=== PATIENT | female | born 1970 | race American Indian/Alaskan Native ===

== ENCOUNTER 2022-04-23 15:17 | Emergency (ER) | payer BC ==
--- NOTE | 2022-04-23 15:28 | Event Note ---
ED Screening Note ED Screening Note: 51 yo AA female with substernal cp never had this before feels heavy no sob pmh dm no acs hx This initial assessment/diagnostic orders/clinical plan/treatment(s) is/are subject to change based on patients health status, clinical progression and re- assessment by fellow clinical providers in the ED. Further treatment and workup at subsequent clinical providers discretion. Patient/guardian urged not to elope from the ED as their condition may be serious if not clinically assessed and managed. Initial orders include: ro acs
--- NOTE | 2022-04-23 15:53 | XRay Report ---
XR chest routine 2V INDICATION / CLINICAL INFORMATION: Chest Pain COMPARISON: None available. FINDINGS: SUPPORT DEVICES: None. HEART / MEDIASTINUM: No significant abnormality. LUNGS / PLEURA: Lungs are clear. Costophrenic sulci are sharp. No pneumothorax. ADDITIONAL FINDINGS: No significant additional findings. IMPRESSION: 1. No significant abnormality. Signer Name: Venkat Guzman MD Signed: 04/23/2022 3:48 PM Workstation Name: [id number]
[2022-04-23 18:16] LABS: Alanine Aminotransferase 41 units/L (7-56); BUN/Creatinine Ratio 18; Blood Urea Nitrogen 14 mg/dL (7-17); Calcium 9.9 mg/dL (8.4-10.2); Hemolysis Index 31
[2022-04-23 18:57] LABS: Eosinophils % (Auto) 0.2 % (0.0-4.3); Hematocrit 40.3 % (30.3-42.9); Hemoglobin 13.6 gm/dl (10.1-14.3); Lymphocytes % (Auto) 42.6 % (13.4-35.0); Mean Corpuscular HGB Conc 34 % (30-34); Mean Corpuscular Volume 90 fl (79-97); Monocytes # (Auto) 0.4 K/mm3 (0.0-0.8); Monocytes % (Auto) 8.5 % (0.0-7.3); Platelet Count 234 K/mm3 (140-440); Red Cell Distribution Width 12.1 % (13.2-15.2)
[2022-04-23 19:16] LABS: Albumin TNR g/dL (3.9-5)
--- NOTE | 2022-04-24 10:25 | Emergency Department Report ---
ED Chest Pain HPI - General Chief Complaint: Chest Pain Stated Complaint: CHEST PAIN Time Seen by Provider: 04/24/22 08:43 Source: patient Mode of arrival: Ambulatory Limitations: No Limitations - History of Present Illness Initial Comments: 51-year-old female with a past medical history of [id number] diabetes and recent diagnosis of mixed connective tissue disorder presents to the hospital complain of anterior right-sided chest pain that started prior to ED presentation yesterday. Pain described as 7/10 intensity, aching, worse with movement and palpation. Patient denies shortness of breath, nausea, vomiting, diaphoresis, calf tenderness, leg edema, or history of PE/DVT. She was recently diagnosed with mixed connective tissue disorder by her barytes grinder and recently started on a medication beginning with a "P". - Related Data Previous Rx's Medication Instructions Recorded Last Taken Type Sulfamethoxazole/Trimethoprim 1 each PO BID #10 tablet 04/16/20 Unknown Rx [Bactrim DS TAB] metFORMIN [Glucophage] 500 mg PO BID #60 tablet 04/16/20 Unknown Rx Allergies Allergy/AdvReac Type Severity Reaction Status Date / Time No Known Allergies Allergy Verified 04/16/20 12:26 Heart Score - HEART Score History: Slightly suspicious EKG: Non-specific Age: 45-65 Risk factors: 1-2 risk factors Troponin: < normal limit HEART Score: 3 - EKG Read Time Time EKG Completed: 08:21 EKG Read Time: 08:30 ED Review of Systems ROS: Stated complaint: CHEST PAIN Other details as noted in HPI Comment: All other systems reviewed and negative ED Past Medical Hx - Past Medical History Previous Medical History?: Yes Hx Diabetes: Yes Additional medical history: Mixed connective tissue disorder - Surgical History Additional Surgical History: HYSTERECTOMY - Social History Smoking Status: Never Smoker - Medications Home Medications: Home Medications Medication Instructions Recorded Confirmed Last Taken Type Sulfamethoxazole/Trimethoprim 1 each PO BID #10 tablet 04/16/20 Unknown Rx [Bactrim DS TAB] metFORMIN [Glucophage] 500 mg PO BID #60 tablet 04/16/20 Unknown Rx ED Physical Exam - General Limitations: No Limitations - Other Other exam information: General: No acute distress Head: Atraumatic Eyes: normal appearance ENT: Moist mucous membranes Neck: Normal appearance, no midline tenderness Chest: Clear to auscultation bilaterally, reproducible right-sided anterior chest wall tender CV: Regular rate and rhythm Abdomen: Soft, normal bowel sounds, nontender, nondistended, no rebound or guarding Back: Normal inspection Extremity: Normal inspection, full range of motion, no calf tenderness or leg edema, reproducible tenderness to right bicep area Neuro: Alert O x 3, no facial asymmetry, speech clear, no gross motor sensory deficit Psych: Appropriate behavior Skin: No rash ED Course Vital Signs 04/23/22 04/24/22 15:24 11:21 Temperature 98.4 F 97.7 F Pulse Rate 104 H 100 H Respiratory 18 18 Rate Blood Pressure 175/103 Blood Pressure 146/90 [Left] O2 Sat by Pulse 100 98 Oximetry ANTONINA score - Antonina Score Age > 65: (0) No 3 or more CAD Risk Factors: (0) No 2 or more Angina events in past 24 hrs: (0) No Known CAD with more than 50% Stenosis: (0) No Elevated Cardiac Markers: (0) No ST Deviation Greater than 0.5mm: (0) No ED Medical Decision Making - Lab Data Result diagrams: 04/23/22 16:55 04/23/22 16:55 Lab Results 04/23/22 04/23/22 04/23/22 Range/Units 16:55 16:55 22:37 WBC 4.6 (4.5-11.0) K/mm3 RBC 4.50 (3.65-5.03) M/mm3 Hgb 13.6 (10.1-14.3) gm/dl Hct 40.3 (30.3-42.9) % MCV 90 (79-97) fl MCH 30 (28-32) pg MCHC 34 (30-34) % RDW 12.1 L (13.2-15.2) % Plt Count 234 (140-440) K/mm3 Lymph % (Auto) 42.6 H (13.4-35.0) % [place] % (Auto) 8.5 H (0.0-7.3) % Eos % (Auto) 0.2 (0.0-4.3) % Baso % (Auto) Area Development Consultant Lymph # (Auto) 2.0 (1.2-5.4) K/mm3 [place] # (Auto) 0.4 (0.0-0.8) K/mm3 Eos # (Auto) 0.0 (0.0-0.4) K/mm3 Baso # (Auto) 0.0 (0.0-0.1) K/mm3 Seg Neutrophils % 48.2 (40.0-70.0) % Seg Neutrophils # 2.2 (1.8-7.7) K/mm3 Sodium 136 L (137-145) mmol/L Potassium 4.1 (3.6-5.0) mmol/L Chloride 98.4 (98-107) mmol/L Carbon Dioxide 24 (22-30) mmol/L Anion Gap 18 mmol/L BUN 14 (7-17) mg/dL Creatinine 0.8 (0.6-1.2) mg/dL Estimated GFR > 60 ml/min BUN/Creatinine Ratio 18 % Glucose 250 H (65-100) mg/dL Calcium 9.9 (8.4-10.2) mg/dL Total Bilirubin 0.20 (0.1-1.2) mg/dL AST 30 (5-40) units/L ALT 41 (7-56) units/L Alkaline Phosphatase 119 (35-129) units/L Troponin T < 0.010 < 0.010 (0.00-0.029) ng/mL Total Protein 8.3 H (6.3-8.2) g/dL Albumin TNR Albumin/Globulin Ratio TNR Lipase 21 (13-60) units/L - EKG Data -: EKG Interpreted by Me (Biatrial enlargement) EKG shows normal: sinus rhythm, ST-T waves (No STEMI) Rate: tachycardia (101) - Radiology Data Radiology results: report reviewed XR chest routine 2V INDICATION / CLINICAL INFORMATION: Chest Pain COMPARISON: None available. FINDINGS: SUPPORT DEVICES: None. HEART / MEDIASTINUM: No significant abnormality. LUNGS / PLEURA: Lungs are clear. Costophrenic sulci are sharp. No pneumothorax. ADDITIONAL FINDINGS: No significant additional findings. IMPRESSION: 1. No significant abnormality. - Medical Decision Making 51-year-old female presents to the hospital reproducible right anterior chest wall tenderness with mild sinus tachycardia on EKG. Patient's troponin negative x2 with heart score less than 4. Patient states she has had chronic sinus tac hycardia for x1 year. She was seen in by a metalizer field operation last year and received Holter monitoring and echocardiogram. Patient denies shortness of breath, calf tenderness, recent travel/immobilization, leg edema, or pleuritic chest pain to suggest pulmonary embolism. No signs of hypoxia. Patient recently diagnosed with a mixed connective tissue disorder which may also cause musculoskeletal pain. Patient has relief after Toradol. Outpatient PMD and cardiology follow- up will be advised Critical Care Time: No Critical care attestation.: If time is entered above; I have spent that time in minutes in the direct care of this critically ill patient, excluding procedure time. ED Disposition Clinical Impression: Chest wall pain, Sinus tachycardia Disposition: HOME / SELF CARE / HOMELESS Is pt being admited?: No Does the pt Need Aspirin: No Condition: Stable Instructions: Chest Wall Pain, [id number], Sinus Tachycardia Additional Instructions: Take the medication as prescribed. Follow-up with your doctor or doctor/clinic provided. Return if symptoms worsen as indicated by your discharge instructions. Referrals: KAILEY GARCIAS MD [Staff Physician] - 3-5 Days (Numerical Control Router Operator) TITO GARCES MD [Primary Care Provider] - 3-5 Days (Primary care doctor) Forms: Work/School Release Form(ED) Time of Disposition: 13:14
[2022-04-24] MEDS ORDERED: KETOROLAC 60 MG/2 ML INJ IM ONE (11:57)
[2022-04-24 14:36] VITALS: BP 140/88
--- NOTE | 2022-04-26 15:06 | Electrocardiograph Report ---
[facility] Test Date: 2022-04-23 Test Time: 15:33:41 Pat Name: TORREY MENESES Department: Room: Gender: F Rodeo Clown: RAY : 1970 Requested By: MISHEL SKELTON Order Number: [id number] Reading MD: Janeen Cornejo Measurements Intervals [place] Rate: 100 P: 71 AR: 148 QRS: 49 QRSD: 69 T: 60 QT: 360 QTc: 463 Interpretive Statements Sinus tachycardia Biatrial enlargement No previous ECG available for comparison Electronically Signed On 04-26-2022 15:05:45 EDT by Janeen Cornejo
--- NOTE | 2022-04-26 15:10 | Electrocardiograph Report ---
[facility] Test Date: 2022-04-24 Test Time: 08:21:49 Pat Name: TORREY MENESES Department: Room: Gender: F Rn Outpatient Surgery: MARCY : 1970 Requested By: MISHEL SKELTON Order Number: [id number] Reading MD: Janeen Cornejo Measurements Intervals [place] Rate: 101 P: 68 [place]: 133 QRS: 42 QRSD: 78 T: 73 QT: 369 QTc: 480 Interpretive Statements Sinus tachycardia Atrial premature complex Biatrial enlargement Compared to ECG 04/23/2022 15:33:41 Atrial premature complex(es) now present Electronically Signed On 04-26-2022 15:10:15 EDT by Janeen Cornejo
== END 2022-04-24 14:36 | disposition home or self-care (01) ==
LOC: ED 15:17
DX: R07.9 Chest pain, unspecified (principal); R00.0 Tachycardia, unspecified; E11.9 Type 2 diabetes mellitus without complications; Z79.899 Other long term (current) drug therapy
CPT/HCPCS: 36415; 71046; 80053; 83690; 84484; 85025; 93005; 96372; 99284; J1885; 99283